=== PATIENT | female | born 1960 | race Caucasian/White ===

== ENCOUNTER → 2016-07-26 | Outpatient (CLI) | payer MEDICARE, OTHER ==
--- NOTE | 2016-07-26 19:10 | CT ---
EXAMINATION TYPE: CT abdomen pelvis w con DATE OF EXAM: 07/26/2016 5:31 PM COMPARISON: NONE HISTORY: Left upper quadrant pain x 8 months with low back pain. CT DLP: 1419.00 mGycm Automated exposure control for dose reduction was used. CONTRAST: CT scan of the abdomen pelvis is performed with IV Contrast, patient injected with 100 mL of Omnipaqu e 300. FINDINGS- LUNG BASES-subsegmental changes involving both lung bases. Atelectasis versus infiltrate. LIVER/GB- No gross abnormality is appreciated. Previous cholecystectomy clips noted. PANCREAS- No gross abnormality is seen. SPLEEN- No gross abnormality is seen. ADRENALS-there are 1 cm nodules involving both adrenal glands which are nonspecific but likely relate d to incidental adrenal adenomas. KIDNEYS/BLADDER- no hydronephrosis nephrolithiasis or renal mass. BOWEL- no bowel dilatation. Normal appendix. LYMPH NODES- No greater than 1cm abdominal or pelvic lymph nodes are appreciated. OSSEOUS STRUCTURES-chronic appearing wedge deformity within the lower thoracic spine. OTHER- there is ectasia of the distal abdominal aorta below the level of the renal arteries with a m aximal diameter of 2.6 cm. Mild atherosclerotic changes seen. Retroaortic left renal vein incidentall y noted IMPRESSION- 1. Subsegmental basilar changes. Atelectasis favored over pneumonia. Correlate clinically. 2. Aortic ectasia with no diagnostic evidence of aneurysm 3. Nonspecific 1 cm bilateral adrenal nodules most likely related to adenoma.
== END | disposition home or self-care (01) ==
LOC: RADCTMAIN 15:42
PROVIDERS: ATTEND Family Medicine
DX: I77.811 Abdominal aortic ectasia (principal); E27.8 Other specified disorders of adrenal gland; R10.12 Left upper quadrant pain
CPT/HCPCS: 74177; Q9967

== ENCOUNTER → 2017-02-15 | Outpatient (CLI) | payer MEDICARE ==
[2017-02-15 21:04] LABS: ALT 25 U/L (9-52); AST 19 U/L (14-36); Alkaline Phosphatase 87 U/L (38-126); Anion Gap 11 mmol/L; Blood Urea Nitrogen 12 mg/dL (7-17); Calcium 9.3 mg/dL (8.4-10.2); Carbon Dioxide 23 mmol/L (22-30); Chloride 108 mmol/L (98-107); Cholesterol 199 mg/dL (<200); Glucose 79 mg/dL (74-99); HDL Cholesterol 46 mg/dL (40-60); Non-African American GFR(MDRD) >60 (>60 ml/min/1.73 sqM); Potassium 4.4 mmol/L (3.5-5.1); Sodium 142 mmol/L (137-145); Total Bilirubin 0.4 mg/dL (0.2-1.3); Total Protein 6.8 g/dL (6.3-8.2); Triglycerides 119 mg/dL (<150)
== END | disposition home or self-care (01) ==
LOC: MMGSC 11:09
PROVIDERS: ATTEND Family Medicine
DX: E78.5 Hyperlipidemia, unspecified (principal); Z51.81 Encounter for therapeutic drug level monitoring
CPT/HCPCS: 36415; 80053; 80061

== ENCOUNTER → 2017-06-16 | Outpatient (CLI) | payer MEDICARE, OTHER ==
--- NOTE | 2017-06-16 12:23 | MR ---
EXAMINATION TYPE: MR lumbar spine wo con DATE OF EXAM: 06/16/2017 COMPARISON: 03/10/2014 HISTORY: 57-year-old female low back pain into legs TECHNIQUE: Multiplanar, multisequence images of the lumbar spine were acquired. FINDINGS: Slight anterior wedging of T11 vertebral body with superior endplate Schmorl's node is unchanged sugg esting remote compression injury. Mild heterogeneous marrow signal without suspicious bone marrow placement. There is a fatty matrix he mangioma within the T12 vertebral body and some scattered fatty Modic type II endplate changes anteri chiqui which is at L1-L2, L2-L3, and L3-L4. Alignment is maintained and vertebral body heights are preserved. There is variable moderate disc desiccation throughout with mild disc space narrowing and bulging dis cs. Hypertrophic facet arthropathy mid to lower lumbar spine with scattered ligamentum flavum thickening. Conus medullaris is normal. There is a component of mild congenital spinal canal stenosis in the mid to lower lumbar spine with A P canal dimension of 1.1 cm. Graft at T12-L1, no spinal canal or neuroforaminal stenosis. At L1-L2, there is diffuse disc bulge which impresses onto the ventral thecal sac. Additional mild fa cet degenerative change. Changes result in mild left and [id number]-jo-[id number] right neuroforaminal stenos is. At L2-L3, mild bulging disc with minimal bilateral inferior neural foraminal narrowing. No spinal can al stenosis. At L3-L4, is disc bulge with ligamentum flavum thickening and facet degenerative change. There is ove rall mild spinal canal stenosis similar to prior with moderate right greater than left neural foramin al stenosis which appears to be slightly increased in the interval. At L4-L5, there is diffuse disc bulge and facet arthropathy. Changes result in moderate to severe lef t greater than right neuroforaminal stenosis, increased from 2013. No significant spinal canal stenos is. At L5-S1, there is bulging disc with ligamentum flavum thickening and facet degenerative change. No s skye canal stenosis. Changes result in similar moderate left but increased moderate to severe right neuroforaminal stenosis. Similar bilateral adrenal nodularity and ectasia of the upper abdominal aorta 2.6 cm. Fusiform ectasi a infrarenal abdominal aorta increased 2.6 cm now measuring 2.9 cm. No prevertebral or paravertebral soft tissue abnormality seen. IMPRESSION: 1. Moderate multilevel degenerative disc disease. This is superimposed on a mild congenital spinal ca nal stenosis in the mid to lower lumbar spine. 2. Scattered ligamentum flavum thickening and facet arthropathy. 3. There is mild overall spinal canal stenosis at L3-L4, not significantly changed. 4. Moderate right greater than left neuroforaminal stenosis at L3-L4 slightly increased in the interv al. 5. Moderate to severe left greater than right neuroforaminal stenosis at L4-L5 is increased from 2014 . 6. Similar moderate left but with worsened moderate to severe right neural foraminal stenosis at L5-S 1. 7. Fusiform ectasia infrarenal abdominal aorta at 2.9 cm, increased from 2.6 cm in 2014. 8. Bilateral adrenal gland nodularity could reflect underlying adrenal adenoma, stable from 2014.
== END | disposition home or self-care (01) ==
LOC: RADMRIMAIN 11:14
PROVIDERS: ATTEND Family Medicine
DX: M48.07 Spinal stenosis, lumbosacral region (principal); M51.36 Other intervertebral disc degeneration, lumbar region; M46.96 Unspecified inflammatory spondylopathy, lumbar region
CPT/HCPCS: 72148

== ENCOUNTER → 2019-01-08 | Outpatient (CLI) | payer MEDICARE, OTHER ==
--- NOTE | 2019-01-08 22:44 | MR ---
EXAMINATION TYPE: MR lumbar spine wo con DATE OF EXAM: 01/08/2019 COMPARISON: MRI lumbar spine June 16, 2017. HISTORY: Radiculopathy and right foraminal stenosis per order. Low back pain into right leg and butto cks for 2 months per patient. TECHNIQUE: Multiplanar, multisequence imaging of the lumbar spine is performed without IV contrast. FINDINGS: Sagittal images of the lumbar spine show vertebral body heights and alignment to remain sat isfactory. Multilevel disc desiccation is redemonstrated. Moderate disc space narrowing at L3-L4 leve l is again seen. The conus medullaris remains stable in position and signal ending mid T12 level. Mil [id number] multilevel anterior spurring with heterogeneous endplate changes is redemonstrated. Axial images at the T12-L1 level remain within normal limits. Axial images at the L1-L2 level redemonstrate mild to moderate broad-based posterior disc protrusion effacing anterior thecal sac, bilateral neural foramina are patent. No significant change from prior. Axial images at the L2-L3 level show mild/moderate broad-based posterior disc protrusion minimally ef facing anterior thecal sac and causing mild narrowing to inferior neural foraminal narrowing. No sign ificant change from prior. Axial images at the L3-L4 level shows mild facet degenerative changes and ligamentum flavum hypertrop hy with moderate to advanced broad disc bulge effacing anterior thecal sac and causing moderate bilat eral anterior inferior neural foraminal narrowing. No significant change from prior. Axial images at the L4-L5 level mild facet degenerative changes bilaterally with mild/moderate broad disc bulge mildly effaces the anterior thecal sac and causing moderate to advanced left and moderate right-sided neural foraminal narrowing. No significant change from prior. Axial images at the L5-S1 level show moderate to advanced facet degenerative changes bilaterally with wzmc-wu-tueafuwe broad disc bulge minimally effacing the anterior thecal sac and causing moderate to severe right and moderate left-sided neural foraminal narrowing. No significant change from prior. There is partial visualization of bilateral adrenal masses axial image 29 and ectasia abdominal aorta up to 2.9 cm transversely axial image 14 without significant change from prior. Retroaortic left nirav al vein is redemonstrated which is normal variant. IMPRESSION: Multilevel degenerative changes in the lumbar spine most prominent L3-L4 through the L5-S 1 levels as detailed above. No significant change from prior MRI.
== END | disposition home or self-care (01) ==
LOC: RADMRIMAIN 16:33
PROVIDERS: ATTEND Family Medicine
DX: M47.22 Other spondylosis with radiculopathy, cervical region (principal); M47.27 Other spondylosis with radiculopathy, lumbosacral region
CPT/HCPCS: 72148

== ENCOUNTER → 2019-08-15 | Outpatient (CLI) | payer MEDICARE ==
--- NOTE | 2019-08-19 09:10 | MM ---
Reason for exam: screening (asymptomatic). Last mammogram was performed 5 years and 3 months ago. History: Patient is postmenopausal. Family history of breast cancer in maternal aunt. Physical Findings: A clinical breast exam by your physician is recommended on an annual basis and results should be correlated with mammographic findings. MG 3D Screening Mammo W/Cad Bilateral CC and MLO view(s) were taken. Prior study comparison: May 28, 2014, bilateral MG screening mammo w CAD. May 02, 2008, bilateral digital screening mammogram. There are scattered fibroglandular densities. No significant changes when compared with prior studies. ASSESSMENT: Benign, BI-RAD 2 RECOMMENDATION: Routine screening mammogram of both breasts in 1 year.
== END | disposition home or self-care (01) ==
LOC: RADMAMWWP 16:52
PROVIDERS: ATTEND Family Medicine
DX: Z12.31 Encounter for screening mammogram for malignant neoplasm of breast (principal)
CPT/HCPCS: 77063; 77067

== ENCOUNTER 2021-10-20 08:48 | Day surgery (SDC) | payer MEDICARE ==
[2021-10-19 08:31] VITALS: BMI 32.5
[~2021-10-20 08:48] MED LIST: LACTATED RINGERS 1,000 ML IV SCH
[2021-10-20 10:15] VITALS: TEMP 97
[2021-10-20] MEDS ORDERED: LIDOCAINE 1% (10MG/ML) FOR IV START INTRADERMA ONE (10:15)
[2021-10-20] MEDS ORDERED: PROPOFOL 10 MG/ML 20 ML VIAL IV ONE (10:54)
--- NOTE | 2021-10-20 11:12 | P.PCN ---
Date of Procedure: 10/20/21 Procedure(s) Performed: BRIEF HISTORY: Patient is a 61-year-old, pleasant, white female scheduled for an upper endoscopy as a part of evaluation of intermittent dysphagia to solids for the last few months duration. His occasional heartburn.. PROCEDURE PERFORMED: Esophagogastroduodenoscopy with biopsy. PREOPERATIVE DIAGNOSIS: Progressive dysphagia to solids. IV sedation per anesthesia. PROCEDURE: After informed consent was obtained, the patient was brought into the endoscopy unit. IV sedation was administered by Anesthesia under continuous monitoring. Initially the Olympus GIF-140 video endoscope was inserted into the mouth. Esophagus intubated without any difficulty. It was gradually advanced into the stomach and duodenum and carefully examined. The bulb and the second part of the duodenum appeared normal. The scope at this time was withdrawn to the stomach, adequately insufflated with air, and upon careful examination, mucosa of the antrum, had mild gastritis and biopsies were done from this area. The body, cardia and the fundus appeared normal. The scope was then withdrawn into the esophagus. Under size well hernia noted. The GE junction was located at 33 cm from the incisors. There were linear erosions or ulcerations noted in the distal esophagus extending from 28-30 cm from incisors consistent with LA grade D reflux esophagitis. Also there wasn't possible Castillo's esophagus extending from 28-30 cm from the incisors which was biopsied but there was severe inflammation this area. There was early esophageal stricture identified the GE junction. The rest of the esophagus appeared normal. the patient tolerated the procedure well. IMPRESSION: 1. Erosions or ulcerations in the distal esophagus extending from 28-33 cm from the incisors consistent with LA grade D reflux esophagitis. 2. Possible Castillo's esophagus extending from 28-30 cm from the incisors sta tus post multiple biopsies 3. Early distal esophageal stricture 4. Moderate size hiatal hernia. RECOMMENDATIONS: The findings of this examination were discussed with the patient as well as his family. She was advised to follow with the biopsy results. If the biopsy confirms the presence of Castillo's esophagus he can have a repeat surveillance upper endoscopy 3 years. In the meantime she'll be started on omeprazole 20 mg twice daily and was briefly educated about antireflux measures and she'll be seen in office in 8 weeks..
[2021-10-20 11:45] VITALS: BP 135/84; PULSE 85; RESP 20
== END 2021-10-20 12:09 | disposition home or self-care (01) ==
LOC: ORWHC2ENDO 08:48
PROVIDERS: ATTEND Internal Medicine Gastroenterology
DX: K29.50 Unspecified chronic gastritis without bleeding (principal); K22.10 Ulcer of esophagus without bleeding; K44.9 Diaphragmatic hernia without obstruction or gangrene; K22.2 Esophageal obstruction; E78.5 Hyperlipidemia, unspecified; J45.909 Unspecified asthma, uncomplicated; F32.A Depression, unspecified; K21.9 Gastro-esophageal reflux disease without esophagitis; Z90.49 Acquired absence of other specified parts of digestive tract; Z90.710 Acquired absence of both cervix and uterus; Z98.890 Other specified postprocedural states; Z88.8 Allergy status to other drugs, medicaments and biological substances; Z88.1 Allergy status to other antibiotic agents; Z85.828 Personal history of other malignant neoplasm of skin; Z79.899 Other long term (current) drug therapy
CPT/HCPCS: 88305; 88312; 43239; J2704

== ENCOUNTER → 2022-06-10 | Outpatient (CLI) | payer MEDICARE ==
--- NOTE | 2022-06-11 03:17 | MR ---
EXAMINATION TYPE: MR knee LT wo con DATE OF EXAM: 06/10/2022 COMPARISON: 12/23/2011 HISTORY: LEFT KNEE PAIN Multiplanar multi echo imaging of the left knee performed without contrast. The anterior and posterior cruciate ligaments are intact. Patellar tendon is intact. There is a mild knee joint effusion. The collateral ligaments are intact. The medial and lateral menisci appear intac t. No evidence of a tear. No evidence of a fracture. No evidence of bone edema. There is mild narrowi ng of the medial joint space. IMPRESSION: There is knee joint effusion without much change compared to the old exam. No evidence of meniscal or ligamentous tear. Mild narrowing of the medial joint space.
== END | disposition home or self-care (01) ==
LOC: RADMRIMAIN 12:50
PROVIDERS: ATTEND Orthopaedic Surgery
DX: M25.462 Effusion, left knee (principal); M25.562 Pain in left knee

== ENCOUNTER → 2022-11-10 | Outpatient (CLI) | payer MEDICARE ==
[2022-11-10 21:02] LABS: Basophils # (A) 0.04 X 10*3/uL (0.00-0.10); Basophils % (A) 0.3 %; Eosinophils # (A) 0.11 X 10*3/uL (0.04-0.35); Eosinophils % (A) 0.8 %; HGB 12.1 g/dL (12.0-15.0); Immature Grans, Automated 0.3 %; Lymphocytes # (A) 2.54 X 10*3/uL (0.90-5.00); Lymphocytes % (A) 19.4 %; MCH 26.4 pg (27.0-32.0); MCV 85.2 fL (80.0-97.0); Mean Platelet Volume 10.1 fL (9.5-12.2); Monocytes # (A) 0.83 X 10*3/uL (0.20-1.00); Monocytes % (A) 6.3 %; NRBC Per 100 WBC 0 /100 WBCS (0.0-0.0); Neutrophils # (A) 9.52 X 10*3/uL (1.80-7.70); Neutrophils % (A) 72.9 %; Platelet Count 479 X 10*3/uL (140-440); RBC 4.58 X 10*6/uL (4.10-5.20); RDW 15.4 % (11.5-14.5); WBC 13.08 X 10*3/uL (4.50-10.00)
[2022-11-10 21:35] LABS: African American GFR (CKD) 108.1 (60.0-200.0); Anion Gap 12.2 mmol/L (10.00-18.00); BUN/Creat Ratio 34.8 Ratio (12.00-20.00); Calcium 9.9 mg/dL (8.7-10.3); Carbon Dioxide 30.3 mmol/L (20.0-27.5); Non-African American GFR(CKD) 93.3 (60.0-200.0)
== END | disposition home or self-care (01) ==
LOC: LABPAT 13:55
PROVIDERS: ATTEND Orthopaedic Surgery Hand Surgery
DX: Z01.818 Encounter for other preprocedural examination (principal); G56.01 Carpal tunnel syndrome, right upper limb; R94.31 Abnormal electrocardiogram [ECG] [EKG]
CPT/HCPCS: 36415; 80048; 85025; 93005

== ENCOUNTER → 2022-12-01 | Outpatient (CLI) | payer MEDICARE ==
[2022-12-01 13:40] VITALS: BP 131/85; PULSE 100; RESP 16; TEMP 98.2
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
== END ==
LOC: PNWHC3 12:32
PROVIDERS: ATTEND Specialist
DX: M47.816 Spondylosis without myelopathy or radiculopathy, lumbar region (principal); M51.36 Other intervertebral disc degeneration, lumbar region; E78.5 Hyperlipidemia, unspecified; F17.210 Nicotine dependence, cigarettes, uncomplicated; M19.90 Unspecified osteoarthritis, unspecified site; G25.81 Restless legs syndrome; F32.9 Major depressive disorder, single episode, unspecified; Z88.6 Allergy status to analgesic agent; Z88.1 Allergy status to other antibiotic agents; Z88.8 Allergy status to other drugs, medicaments and biological substances
CPT/HCPCS: 99202

== ENCOUNTER → 2022-12-01 | Outpatient (CLI) | payer MEDICARE ==
--- NOTE | 2022-12-01 17:15 | XR ---
EXAMINATION TYPE: XR lumbar spine 2 or 3V DATE OF EXAM: 12/01/2022 Comparison: 08/18/2010 Clinical History: 62-year-old female M51.36 OTHER INTERVERTEBRAL DISC DEGENERATION, LUMB Findings: Cystectomy clips. 5 lumbar type vertebral bodies. Hypertrophic facet arthropathy mid to lower lumbar spine. Somewhat short appearance to the pedicles in the lower lumbar spine could reflect an underlyin g congenital spinal canal narrowing. Mild multilevel degenerative disc disease. More moderate at L5-S 1. There is degenerative grade 1 anterolisthesis L3-L4 and grade 1 retrolisthesis L4-L5. Superior end plate deformity T11 is unchanged from 2010. No new compression deformity. Impression: Hypertrophic facet arthropathy with degenerative trace grade 1 spondylolistheses at L3-L4 and L4-L5. [id number] multilevel degenerative disc disease. Chronic superior endplate deformity of T11.
== END | disposition home or self-care (01) ==
LOC: RADXRMAIN 13:57
PROVIDERS: ATTEND Physician Assistant Medical
DX: M51.36 Other intervertebral disc degeneration, lumbar region (principal); M47.816 Spondylosis without myelopathy or radiculopathy, lumbar region; M43.8X4 Other specified deforming dorsopathies, thoracic region
CPT/HCPCS: 72100

== ENCOUNTER 2022-12-07 10:38 | Day surgery (SDC) | payer MEDICARE, OTHER ==
[2022-12-02 15:02] VITALS: BMI 35.0
--- NOTE | 2022-12-06 09:21 | P.HPOR ---
History of Present Illness H&P Date: 12/06/22 Subjective: This is a 62 year old female that presents today for follow up evaluation regarding worsening wrist pain effecting the left wrist now present for several years. She denies any prior injury or inciting event. She underwent an intra- articular steroid injection to the left wrist for her SLAC wrist arthritis as well as a first dorsal compartment injection for DeQuervains and her DeQuervains symptoms have resolved. She has pain with all types of wrist movement at the dorsal aspect of the wrist with pain, swelling and limited ROM. She also has numbness and tingling in the thumb, index and middle fingers that is no long responding to conservative treatment after several years of anti-inflammatories and bracing. Physical Examination: RUE: AIN/PIN/Radial/Ulnar/Median motor intact. Radial/Ulnar/Median SILT. 2+/4 Radial/Ulnar pulses palpated. 5/5 APB, 5/5 FDI. Negative Finkelsteins, negative CMC grind, positive Durkan's compression. TTP over dorsal radiocarpal joint with swelling. Wrist F/E 75/45 with pain at terminal flexion/extension. Imaging: X-Rays of the right wrist 3V taken in office today demonstrate SLAC wrist arthritis, stage 2. Impression: 1.) Right SLAC wrist arthritis (Stage 2) 2.) Right carpal tunnel syndrome Plan: Diagnosis and treatment options were discussed with the patient. She has failed conservative treatment for her right SLAC wrist arthritis and carpal tunnel syndrome and would like to proceed with scaphoid excision and 4 corner fusion and right endoscopic vs open carpal tunnel release. Risks and benefits of surgery including bleeding, infection, damage to surrounding tissue, need for further surgery, residual numbness were discussed and the patient wished to go forward with surgery. The patient is agreeable with this plan. -Jay Gould DO Orthopedic Hand/Upper Extremity Surgeon Past Medical History Past Medical History: Asthma, Cancer, GERD/Reflux, Hyperlipidemia, Musculoskeletal Disorder Additional Past Medical History / Comment(s): Bulging discs, Degenerative Disc Disease, osteoporosis, chronic back pain. Dysphagia w/meat & bread. Hx skin cancer. Restless Leg Syndrome. Varicose veins left leg. Insomnia. History of Any Multi-Drug Resistant Organisms: None Reported Past Surgical History: Cholecystectomy, Hysterectomy, Orthopedic Surgery Additional Past Surgical History / Comment(s): Bilateral arms-tendon surgery, right arm ulnar nerve surgery. Past Anesthesia/Blood Transfusion Reactions: No Reported Reaction, Motion Sickness Past Psychological History: Depression Smoking Status: Former smoker Past Alcohol Use History: None Reported Additional Past Alcohol Use History / Comment(s): Quit smoking 3 yrs ago, smoked for 40 yrs, 1ppd. Past Drug Use History: None Reported - Past Family History Mother Family Medical History: No Reported History Medications and Allergies Home Medications Medication Instructions Recorded Confirmed Type Cholecalciferol [Vitamin D3] 2,000 unit PO DAILY 10/16/14 12/02/22 History HYDROcodone/APAP 7.5-325MG [[place] 1 each PO Q6HR PRN 10/16/14 12/02/22 History 7.5-325] Tolterodine Tartrate [Detrol LA] 2 mg PO BID 10/16/14 12/02/22 History Multivitamins, Thera [Multivitamin 1 tab PO DAILY 10/19/21 12/02/22 History (formulary)] rOPINIRole HCL [Requip] 0.25 mg PO HS 10/19/21 12/02/22 History Ezetimibe/Rosuvastatin Calcium 1 each PO DAILY 12/01/22 12/02/22 History [Ezetimibe/Rosuvastatin Calcium 10-10Mg] DULoxetine HCL 40 mg PO QAM 12/02/22 12/02/22 History Omeprazole 20 mg PO BID 12/02/22 12/02/22 History hydroCHLOROthiazide 12.5 mg PO DAILY 12/02/22 12/02/22 History [Hydrochlorothiazide] Allergies Allergy/AdvReac Type Severity Reaction Status Date / Time pramipexole Allergy Hallucinati Verified 12/02/22 14:45 ons celecoxib [From Celebrex] AdvReac Nausea & Verified 12/02/22 14:45 Vomiting doxycycline AdvReac Nausea & Verified 12/02/22 14:45 Vomiting duloxetine HCl AdvReac Nausea & Verified 12/02/22 14:45 [From Cymbalta] Vomiting Physical Examination Osteopathic Statement: *. No significant issues noted on an osteopathic structural exam other than those noted in the History and Physical/Consult.
[~2022-12-07 10:38] MED LIST changes: +DEXAMETHASONE SOD PHOSPHATE 4 MG/ML 1 ML VIAL IV ONE; +HYDROmorphone 0.5 MG/0.5 ML SYRINGE IVP PRN; +LIDOCAINE 1% (10MG/ML) FOR IV START INTRADERMA PRN; +ONDANSETRON 4 MG/2 ML VIAL IVP ONE; +droPERidol 5 MG/2 ML VIAL IVP ONE
[2022-12-07] MEDS ORDERED: MIDAZOLAM 2 MG/2 ML VIAL IVP ONE (11:24)
[2022-12-07] MEDS ORDERED: SUCCINYLCHOLINE CHLORIDE 200 MG/10 ML VIAL IV ONE (14:44)
[2022-12-07] MEDS ORDERED: LIDOCAINE 2% INJ 20 MG/ML (2 ML VIAL) ONE (14:44)
[2022-12-07] MEDS ORDERED: PHENYLEPHRINE-0.9% NACL SYG 1,000 MCG/10 ML SYRINGE ONE (14:44)
[2022-12-07] MEDS ORDERED: fentaNYL (PF) 50 MCG/ML 2 ML AMP ONE (14:44)
[2022-12-07] MEDS ORDERED: PROPOFOL 10 MG/ML 20 ML VIAL IV ONE (14:44)
[2022-12-07] MEDS ORDERED: LACTATED RINGERS 1,000 ML IV ONE (16:17)
[2022-12-07 17:10] VITALS: RESP 16; TEMP 96.9
[2022-12-07 17:53] VITALS: BP 108/66; PULSE 90
--- NOTE | 2022-12-07 19:17 | P.OP ---
Date of Procedure: 12/07/22 Preoperative Diagnosis: 1.) Right wrist SLAC arthritis 2.) Right carpal tunnel syndrome Postoperative Diagnosis: 1.) Right wrist SLAC arthritis 2.) Right carpal tunnel syndrome Procedure(s) Performed: 1.) Right wrist Scaphoid excision and four corner fusion 2.) Right endoscopic carpal tunnel release Implants: 1.) 0.062 Kwire x 1 2.) 0.045 Kwire x 3 Anesthesia: NATHENA, regional Surgeon: Jay Gould Kindergarten Classroom Teacher #1: Srini French Estimated Blood Loss (ml): 30 Pathology: none sent Condition: stable Disposition: PACU Description of Procedure: This is a 62 year old female who presents today for a right scaphoid excision and four corner limited wrist arthrodesis and an endoscopic carpal tunnel release after having failed conservative treatment for end stage wrist arthritis and carpal tunnel syndrome. Risks and benefits of surgery were discussed with the patient including bleeding, damage to surrounding tissue, infection, need for further surgery as well as risks of anesthesia including pulmonary embolism and even and the patient wished to proceed with surgical intervention. The patient was seen in the pre-operative area by myself. Consent and H&P were completed and updated. The correct extremity was marked in the pre-operative area by myself and all other questions were answered. Operative Narrative: The patient was brought to the operating room by the department of anesthesia. They remained on the portable stretcher and a rolling hand table was brought to the side of the operative extremity. Pre-operative time out was performed indicating the correct patient, procedure and laterality. All in the room agreed. Pre-operative antibiotics were given prior to skin incision. The patient was then drifted off to sleep by the department of anesthesia. A nonsterile tourniquet was then applied to the operative extremity and the right upper extremity was then prepped and draped in normal sterile fashion. The operative extremity was the exsanguinated with an esmarch bandage and the tourniquet was inflated to 250mmHg. 15 blade scalpel was utilized to make a transverse incision on the palmar skin just ulnar to the palmaris longus tendon at the level of the distal wrist crease. Ragnell retractor was then placed radially and blunt dissection was performed to reveal the distal forearm fascia. This was lifted with fine Shakir pick ups and Littler tenotomy scissors were then used to open the forearm fascia transversely and a double skin hook was then placed. Hamate finder was placed into the carpal tunnel and then sequential sized dilators were inserted followed by the synovial elevator to separate the flexor tenosynovium from the undersurface of the transverse carpal ligament and a washboard texture was felt. The [employer] endoscopic carpal tunnel release system gun was the then inserted into the carpal tunnel hugging the deep portion of the transverse carpal ligament in line with the base of the ring finger. Transverse fibers of the ligament were directly visualized. Pressure was applied on the palm to reveal the distal extent of the transverse carpal ligament. The blade was then deployed and the distal half of the transverse carpal ligament was released. The scope was then brought distal again and remaining transverse fibers were incised with the blade. The proximal half of the transverse carpal ligament was then divided and again the scope was advanced distal and remaining transverse fibers were incised with the blade. The radial and ulnar leaflets were directly visualized and mobile consistent with complete release. Tenotomy scissors were then utili zed to release the remaining distal forearm fascia under direct visualization taking care to preserve the palmar cutaneous branch of the median nerve. A longitudinal incision was made just ulnar to Listers tubercle with 15 blade scalpel. Blunt dissection was taken down through subcutaneous tissues with Littler tenotomy scissors. Dorsal sensory branches of the ulnar nerve and superficial radial sensory nerve were identified and protected. Distal edge of the extensor retinaculum was identified and the distal 1/4 of the extensor retinaculum was incised. EPL tendon was identified at listers tubercle and the third dorsal compartment was released. The 4th dorsal compartment tendons were then swept ulnarly and a T-shaped capsular incision was made over the dorsal rad iocarpal capsule. Sharp dissection was performed to elevate the capsule off of the dorsal carpal bones, abundant synovial tissue was present deep to the capsule. Synovectomy was performed. There appeared to be end stage radioscaphoid arthritic changes as well as early changes at the capitolunate articulation with preserved radiolunate articular surfaces therefore decision was made to go forward with scaphoid excision and 4 corner fusion. K wire was inserted into the scaphoid and identification of the scaphoid bone was confirmed on fluoroscopy. A rongeur and McGlammory elevator were then used to excise the scaphoid bone in its entirety in a piecemeal fashion taking care to protect the volar radioscaphocapitate ligament which was identified. Roughly 3mm of radial styloid was then taken down with rongeur taking care to protect the attachment of the RSC ligament. A combination of rongeur and curette was then utilized to remove all cartilaginous surfaces at the capitolunate, capitohamate, and lunotriquetral surfaces down to cancellous bone. The wound was then copiously irrigated to remove all thomas debris. Attention was brought to listers tubercle which was removed with rongeur and dorsal distal radius bone graft was excised from the distal radius with curette and collected. Reduction maneuver was then performed to correct DISI deformity of lunate and a 0.062 K-wire was inserted across the capitolunate joint, followed by an additional 0.045 k-wire. Flouroscopy was used to confirm correct placement and no penetration of the radiolunate joint was appreciated. 0.045 k-wires where then inserted from the hamate to capitate and then the triquetrum to lunate under direct visualized and confirmed on fluoroscopic imaging. Previously harvested distal radius autograft was then placed into the arthrodesis site and axial compression was used to compress the arthrodesis site. Final placement of pins was confirmed on X-ray with correction of DISI deformity. Capsular closure was then performed with 3-0 Monocryl suture followed by subcutaneous closure with 4-0 moncryl suture followed by 4-0 nylon suture. Pin edges were then cut subcutaneously. A volar plaster splint was applied with 4x4s, cast padding and an minnie wrap. Tourniquet was let down and the hand had immediate perfusion. The patient was then woken by the department of anesthesia and transferred to PACU in stable condition. Srini MUKHERJEE was present for the entire case to assist in reduction, hardware placement and protection of vital neurovascular structures. Jay Gould D.O. Orthopedic Hand/Upper Extremity Surgeon
== END 2022-12-07 18:03 | disposition home or self-care (01) ==
LOC: OR 10:38
PROVIDERS: ATTEND Orthopaedic Surgery Hand Surgery
DX: M19.031 Primary osteoarthritis, right wrist (principal); G56.01 Carpal tunnel syndrome, right upper limb; G89.18 Other acute postprocedural pain; J45.909 Unspecified asthma, uncomplicated; K21.9 Gastro-esophageal reflux disease without esophagitis; E78.5 Hyperlipidemia, unspecified; M81.0 Age-related osteoporosis without current pathological fracture; F32.A Depression, unspecified; Z85.828 Personal history of other malignant neoplasm of skin; Z90.49 Acquired absence of other specified parts of digestive tract; Z90.710 Acquired absence of both cervix and uterus; Z87.891 Personal history of nicotine dependence; Z88.6 Allergy status to analgesic agent; Z88.1 Allergy status to other antibiotic agents; Z88.8 Allergy status to other drugs, medicaments and biological substances; Z79.899 Other long term (current) drug therapy
CPT/HCPCS: 64415

== ENCOUNTER → 2023-01-19 | Outpatient (CLI) | payer MEDICARE ==
[2023-01-19 14:58] VITALS: BP 107/70; PULSE 106; RESP 16; TEMP 98.3
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
== END ==
LOC: PNWHC3 13:50
PROVIDERS: ATTEND Specialist
DX: M51.36 Other intervertebral disc degeneration, lumbar region (principal); M47.816 Spondylosis without myelopathy or radiculopathy, lumbar region; F17.200 Nicotine dependence, unspecified, uncomplicated; G89.29 Other chronic pain; Z88.1 Allergy status to other antibiotic agents; Z88.5 Allergy status to narcotic agent; Z88.8 Allergy status to other drugs, medicaments and biological substances
CPT/HCPCS: 99211

== ENCOUNTER 2023-02-01 12:50 | Day surgery (SDC) | payer MEDICARE, OTHER ==
--- NOTE | 2023-01-31 17:37 | P.HPOR ---
History of Present Illness H&P Date: 01/31/23 Subjective: This is a 62 year old female that presents today for a post-operative visit after undergoing scaphoid excision 4 corner fusion and endoscopic carpal tunnel release on 12/07/22. She is now 7 weeks out form surgery and her pain has been controlled. She denies any new injury and has been icing/elevating and working on finger range of motion. Physical Examination: RUE: AIN/PIN/Radial/Ulnar/Median motor intact. Radial/Ulnar/Median SILT. 2+/4 Radial/Ulnar pulses palpated. Dorsal and volar incisions well healed. Able to make a near full fist. Pin hole on ulnar aspect of hand healed. Impression: 1.) S/P Right scaphoid excision 4 corner fusion and endoscopic carpal tunnel release. Plan: Diagnosis and treatment options were discussed with the patient. She is taken out of her her short arm cast and is placed in a short arm splint. We will continue to plan to take the K wires out under light sedation in the operating room around the postop week 8. Risks and benefits of surgery including bleeding, infection, damage to surrounding tissue, need for further surgery, residual numbness were discussed and the patient wished to go forward with surgery. We will start therapy immediately after K-wire removal in 1 week. Referral to [place] hand therapy is given. The patient is agreeable with this plan. CC: Rama Puente MD -Jay Gould DO Orthopedic Hand/Upper Extremity Surgeon Past Medical History Past Medical History: Asthma, Cancer, GERD/Reflux, Hyperlipidemia, Musculoskeletal Disorder, Osteoarthritis (OA), Skin Disorder Additional Past Medical History / Comment(s): Bulging discs, Degenerative Disc Disease, osteoporosis, chronic back pain. Dysphagia w/meat & bread. Hx skin cancer. Restless Leg Syndrome. Varicose veins left leg. Insomnia. states infection @surg. site from prior surg., waiting for surgeon to call in A/B History of Any Multi-Drug Resistant Organisms: None Reported Past Surgical History: Cholecystectomy, Hysterectomy, Orthopedic Surgery Additional Past Surgical History / Comment(s): Bilateral arms-tendon surgery, right arm ulnar nerve surgery. right endoscopic CTS, right scaphoid excision & fusion 12-07-22 Past Anesthesia/Blood Transfusion Reactions: No Reported Reaction, Motion Sickness Smoking Status: Former smoker Medications and Allergies Home Medications Medication Instructions Recorded Confirmed Type Cholecalciferol [Vitamin D3] 2,000 unit PO DAILY 10/16/14 01/30/23 History HYDROcodone/APAP 7.5-325MG [Winifred 1 each PO Q6HR PRN 10/16/14 01/30/23 History 7.5-325] Tolterodine Tartrate [Detrol LA] 2 mg PO BID 10/16/14 01/30/23 History Multivitamins, Thera [Multivitamin 1 tab PO DAILY 10/19/21 01/30/23 History (formulary)] rOPINIRole HCL [Requip] 0.25 mg PO HS 10/19/21 01/30/23 History Ezetimibe/Rosuvastatin Calcium 1 each PO HS 12/01/22 01/30/23 History [Ezetimibe/Rosuvastatin Calcium 10-10Mg] Omeprazole 40 mg PO BID 12/02/22 01/30/23 History hydroCHLOROthiazide 12.5 mg PO DAILY 12/02/22 01/30/23 History [Hydrochlorothiazide] Ascorbic Acid [Vitamin C] 500 mg PO DAILY 12/07/22 01/30/23 History Cyanocobalamin (Vitamin B-12) 1,000 mcg PO DAILY 12/07/22 01/30/23 History [Vitamin B-12] FLUoxetine HCL [PROzac] 40 mg PO BID 12/07/22 01/30/23 History Allergies Allergy/AdvReac Type Severity Reaction Status Date / Time pramipexole Allergy Hallucinati Verified 01/30/23 15:44 ons celecoxib [From Celebrex] AdvReac Nausea & Verified 01/30/23 15:44 Vomiting doxycycline AdvReac Nausea & Verified 01/30/23 15:44 Vomiting duloxetine HCl AdvReac Nausea & Verified 01/30/23 15:44 [From Cymbalta] Vomiting Physical Examination Osteopathic Statement: *. No significant issues noted on an osteopathic structural exam other than those noted in the History and Physical/Consult.
[~2023-02-01 12:50] MED LIST changes: +MIDAZOLAM 2 MG/2 ML VIAL IV PRN; -droPERidol 5 MG/2 ML VIAL IVP ONE
[2023-02-01 13:19] VITALS: TEMP 96.9
[2023-02-01] MEDS ORDERED: MIDAZOLAM 2 MG/2 ML VIAL ONE (13:33)
[2023-02-01] MEDS ORDERED: PROPOFOL 10 MG/ML 20 ML VIAL IV ONE (13:33)
[2023-02-01] MEDS ORDERED: fentaNYL (PF) 50 MCG/ML 2 ML AMP ONE (13:33)
[2023-02-01] MEDS ORDERED: BUPIVACAINE (PF) 0.5% 30 ML VIAL SQ ONE (13:43)
[2023-02-01] MEDS ORDERED: LIDOCAINE 2% INJ 20 MG/ML SQ ONE (13:43)
[2023-02-01 14:34] VITALS: RESP 16
[2023-02-01 15:19] VITALS: BP 104/69; PULSE 75
--- NOTE | 2023-02-01 15:24 | P.OP ---
Date of Procedure: 02/01/23 Preoperative Diagnosis: 1.) SLAC wrist arthritis s/p four corner fusion with temporary K-wire placement. Postoperative Diagnosis: 1.) SLAC wrist arthritis s/p four corner fusion with temporary K-wire placement. Procedure(s) Performed: Right wrist removal of deep orthopedic implant x3. Anesthesia: MAC Surgeon: Jay Gould Putty Patcher #1: Srini French Estimated Blood Loss (ml): 0 Pathology: none sent Condition: stable Disposition: PACU Description of Procedure: This is a 62 year old female with SLAC wrist arthritis who underwent right wrist four corner fusion with temporary K-wire placement roughly 1.5 months prior. She presents today for removal of 3 k-wires. Risks and benefits of surgery were discussed with the patient including bleeding, damage to surrounding tissue, infection, need for further surgery as well as risks of anesthesia including pulmonary embolism and even and the patient wished to proceed with surgical intervention. The patient was seen in the pre-operative area by myself. Consent and H&P were completed and updated. The correct extremity was marked in the pre-operative area by myself and all other questions were answered. Operative Narrative: The patient was brought to the operating room by the department of anesthesia. They remained on the portable stretcher and a rolling hand table was brought to the side of the operative extremity. Pre-operative time out was performed indicating the correct patient, procedure and laterality. All in the room agreed. Pre-operative antibiotics were given prior to skin incision. The patient was then drifted off to sleep by the department of anesthesia. Digital block was performed with 7cc's of 0.5% Lidocaine and 1% lidocaine in a 50:50 mixture. A nonsterile tourniquet was then applied to the operative extremity and the right upper extremity was then prepped and draped in normal sterile fashion. The operative extremity was the exsanguinated with an esmarch bandage and the tourniquet was inflated to 250mmHg. Longitudinal incision was made over the k-wire dorsally at the level of the wrist. Hemostat was then used to successfully remove the two dorsal k-wires without complication. A second incision was made along the ulnar boarder of the hand and hemostat was then used to successfully removed the ulnar k-wire. The sites were then irrigated with sterile saline. Live flouroscopy was used to confirm solid fusion at the 4 corner fusion site with the fusion moving as a single solid unit. The wounds were then closed with several steri strips. Tourniquet was let down and the hand had immediate perfusion. Srini MUKHERJEE was present to assist in the case. The patient was then woken by the department of anesthesia and transferred to PACU in stable condition. Jay Gould D.O. Orthopedic Hand/Upper Extremity Surgeon
== END 2023-02-01 15:17 | disposition home or self-care (01) ==
LOC: OR 12:50
PROVIDERS: ATTEND Orthopaedic Surgery Hand Surgery
DX: Z98.1 Arthrodesis status (principal); J44.9 Chronic obstructive pulmonary disease, unspecified; E78.5 Hyperlipidemia, unspecified; M19.90 Unspecified osteoarthritis, unspecified site; M81.0 Age-related osteoporosis without current pathological fracture; Z85.828 Personal history of other malignant neoplasm of skin; G25.81 Restless legs syndrome; Z90.89 Acquired absence of other organs; Z90.710 Acquired absence of both cervix and uterus; Z79.899 Other long term (current) drug therapy
CPT/HCPCS: 20680; J2001; J2250; J1100; J0690; J2405; J3010; J2704

== ENCOUNTER → 2023-02-06 | Outpatient (CLI) | payer MEDICARE ==
--- NOTE | 2023-02-06 14:42 | CT ---
EXAMINATION TYPE: CT lumbar spine wo con DATE OF EXAM: 02/06/2023 2:06 PM COMPARISON: None HISTORY: low back pain CT DLP: 848 mGycm Automated exposure control for dose reduction was used. Unenhanced CT of the lumbar spine was performed. Bone and soft tissue window settings are submitted as well as coronal and sagittal reconstructions. L1-L2: Mild degenerative disc space narrowing. Circumferential disc bulge and radius posteriorly with mild effacement ventral thecal sac. There is no evidence for disc herniation or protrusion. No centr al stenosis. Right foraminal encroachment noted. L2-L3: Mild degenerative disc space narrowing. Circumferential disc bulge and radius posteriorly with mild effacement ventral thecal sac. There is no evidence for disc herniation or protrusion. No centr al stenosis. Right foraminal encroachment noted. L3-L4: Severe degenerative disc space narrowing and vacuum disks. Moderate circumferential broad-base d disc bulge noted. Effacement ventral thecal sac with bilateral lateral recess stenosis and borderli ne to mild central stenosis. Facet joint arthropathy with mild bilateral foraminal encroachment. L4-L5: Severe degenerative disc space narrowing and vacuum disks. Moderate circumferential broad-base d disc bulge noted. Effacement ventral thecal sac with bilateral lateral recess stenosis and borderli ne to mild central stenosis. Facet joint arthropathy with mild bilateral foraminal encroachment. L5-S1: Severe degenerative disc space narrowing. Broad-based subligamentous disc herniation posterior ly centrally and to the right. There is right lateral recess stenosis and right foraminal encroachmen t. No paraspinal masses are identified. Lumbar segments are intact. IMPRESSION: 1. Multilevel degenerative disc space narrowing and degenerative disc disease. 2. Disc herniation at L5-S1 with right lateral recess stenosis and right foraminal encroachment. 3. Bilateral lateral recess stenosis and borderline to mild central stenosis at L3-4 and L4-5. See ab ove.
== END | disposition home or self-care (01) ==
LOC: RADCTMAIN 13:47
PROVIDERS: ATTEND Specialist
DX: M51.36 Other intervertebral disc degeneration, lumbar region (principal); M51.27 Other intervertebral disc displacement, lumbosacral region; M99.73 Connective tissue and disc stenosis of intervertebral foramina of lumbar region
CPT/HCPCS: 72131

== ENCOUNTER → 2023-02-16 | Outpatient (CLI) | payer MEDICARE ==
[2023-02-16 13:24] VITALS: BP 120/83; PULSE 92; RESP 16; TEMP 98.5
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
== END ==
LOC: PNWHC3 12:49
PROVIDERS: ATTEND Specialist
DX: M51.36 Other intervertebral disc degeneration, lumbar region (principal); M47.816 Spondylosis without myelopathy or radiculopathy, lumbar region; M48.061 Spinal stenosis, lumbar region without neurogenic claudication; F17.200 Nicotine dependence, unspecified, uncomplicated; Z88.8 Allergy status to other drugs, medicaments and biological substances; Z88.1 Allergy status to other antibiotic agents
CPT/HCPCS: 99211

== ENCOUNTER 2023-03-02 12:15 | Day surgery (SDC) | payer MEDICARE, OTHER ==
[2023-02-23 15:57] VITALS: BMI 32.2
[~2023-03-02 12:15] MED LIST changes: -DEXAMETHASONE SOD PHOSPHATE 4 MG/ML 1 ML VIAL IV ONE; -HYDROmorphone 0.5 MG/0.5 ML SYRINGE IVP PRN; -LIDOCAINE 1% (10MG/ML) FOR IV START INTRADERMA PRN; -MIDAZOLAM 2 MG/2 ML VIAL IV PRN; -ONDANSETRON 4 MG/2 ML VIAL IVP ONE
[2023-03-02 12:41] VITALS: TEMP 97.8
[2023-03-02] MEDS ORDERED: methylPREDNISolone ACETATE 80 MG/ML 1 ML VIAL ONE (12:58)
[2023-03-02] MEDS ORDERED: IOPAMIDOL M200 10 ML VIAL ONE (12:58)
--- NOTE | 2023-03-02 13:04 | P.PCN ---
Date of Procedure: 03/02/23 Procedure(s) Performed: PREOPERATIVE DIAGNOSIS: 1- Lumbar Degenerative Disc Diseases 2-Lumbar spondylosis with Facet arthropathy without myelopathy. 3-lumbar spinal stenosis POSTOPERATIVE DIAGNOSIS: 1-lumbar degenerative disc disease. 2-lumbar spondylosis with facet arthropathy without myelopathy. 3-lumbar spinal stenosis. PROCEDURE 1. Lumbar epidural steroid injection under fluoroscopic guidance at the L5-S1 level. (Fluoroscopy imaging was available in radiology department) 2. Lumbar epidurogram. ANESTHESIA: Lidocaine 1% 3 and then only. EBL: Minimal PROCEDURE INDICATION: The patient with low back pain and radiculitis symptoms unresponsive to conservative treatment. Fluoroscopy was used to optimize visualization of the needle placement and to maximize safety. PROCEDURE DESCRIPTION / TECHNIQUE: The patient was seen and identified in the preoperative area. Risks, benefits, complications including but not limited to infections ,bleeding ,allergic reaction to the medications ,nerve damage and not complete pain releife , and alternatives were discussed with the patient. The patient agreed to proceed with the procedure and signed the consent, and vital signs were stable. Patient was taken to the OR and time out was completed. The patient was placed in the prone position on procedure table and a pillow was placed under the abdomen to reduce lumbar lordosis. The lumbosacral area was prepped and draped in the usual sterile fashion.ere closely monitored during the procedure. Vital signs was monitered during the entire procedure. Using anterior-posterior fluoroscopy, the L5-S1 interlaminar space was identified and the skin over this site was marked and then infiltrated with 1% lidocaine subcutaneously. Subsequently, a 20-gauge Tuohy epidural needle was inserted and advanced toward the epidural space using the ``Loss of resistance technique and guided by AP and lateral fluoroscopy. The correct needle position in the epidural space was verified with the injection of 2 mL of the water soluble contrast dye Isovue 200 contrast and observing an excellent epidurogram with the epidural spread of the dye, after negative aspiration for blood and CSF and in the absence of paresthesias. Again after negative aspiration, a 6 ml mixture containing 80 mg of Depo-medrol ( Preservetive Free ), and 2 ml of preservative free Normal Saline, and 2 ml of preservative free lidocaine 1% solution was injected and a washout of epidurogram was seen. Needle was withdrawn intact, skin was cleansed, and bandages were applied. COMPLICATIONS: None DISPOSITION / PLANS: The patient was placed in a supine position and transferred to the recovery area in a stable condition for observation. There was no evidence of lower extremity motor or sensory deficit after the procedure. Patient was discharged from the recovery room after meeting discharge criteria. Home discharge instructions were given to the patient by the staff. The patient was reexamined prior to discharge. The patient will schedule a follow up in the clinic in 2-4 weeks.
[2023-03-02 13:10] VITALS: BP 103/68; PULSE 85; RESP 16
--- NOTE | 2023-03-02 13:13 | FL ---
Intraoperative/procedural fluoroscopic services were provided for lumbar epidural steroid injection. Total fluoroscopy time is 16.0 seconds with a total of 1 submitted image to PACS. Total DAP [id number] m Gym2. Please see the operative note for further details.
== END 2023-03-02 13:20 | disposition home or self-care (01) ==
LOC: ORPAIN 12:15
PROVIDERS: ATTEND Specialist
DX: M51.16 Intervertebral disc disorders with radiculopathy, lumbar region (principal); M47.26 Other spondylosis with radiculopathy, lumbar region; M48.061 Spinal stenosis, lumbar region without neurogenic claudication
CPT/HCPCS: 62323; J1040; Q9966

== ENCOUNTER → 2023-04-05 | Outpatient (CLI) | payer MEDICARE, OTHER ==
[2023-04-05 12:57] VITALS: BP 109/71; PULSE 94; RESP 116; TEMP 98.5
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
== END ==
LOC: PNWHC3 11:03
PROVIDERS: ATTEND Specialist
DX: M51.36 Other intervertebral disc degeneration, lumbar region (principal); M47.816 Spondylosis without myelopathy or radiculopathy, lumbar region; M48.061 Spinal stenosis, lumbar region without neurogenic claudication; F17.200 Nicotine dependence, unspecified, uncomplicated; Z88.8 Allergy status to other drugs, medicaments and biological substances; Z88.1 Allergy status to other antibiotic agents
CPT/HCPCS: 99211

== ENCOUNTER 2023-04-25 11:47 | Day surgery (SDC) | payer MEDICARE, OTHER ==
[2023-04-25 12:10] VITALS: TEMP 97.2
[2023-04-25] MEDS ORDERED: IOPAMIDOL M200 10 ML VIAL ONE (12:51)
[2023-04-25] MEDS ORDERED: methylPREDNISolone ACETATE 80 MG/ML 1 ML VIAL ONE (12:51)
--- NOTE | 2023-04-25 12:58 | P.PCN ---
Date of Procedure: 04/25/23 Description of Procedure: Procedure: 1. L5-S1 Epidural steroid injection under fluoroscopic guidance , 2. Lumbar epidurogram PREOPERATIVE DIAGNOSIS: Lumbar degenerative disc disease, and Lumbar radiculopathy. POSTOPERATIVE DIAGNOSIS: Lumbar degenerative disc disease, and Lumbar r adiculopathy. SURGEON: Barbara Caldwell ANESTHESIA: Local with 1% lidocaine, and IV sedation: None EBL: None. Specimen removed: None Fluoroscopic image: saved to electronic medical records PROCEDURE INDICATION: The patient had history of Lumbar degenerative disc disease and Lumbar radiculopathy. Failed to conservative therapy. Presented for epidural steroid injection. PROCEDURE DESCRIPTION: The patient was seen and identified in the preoperative area. Risks, benefits, complications, and alternatives were discussed with the patient. The patient agreed to proceed with the procedure and signed the consent. IV was started, and vital signs were stable. Patient was taken to the procedure area, and time out was completed. The patient was placed in the prone position on procedure table and a pillow was placed under the abdomen to reduce lumbar lordosis. The lumbosacral area was prepped and draped in the usual sterile fashion. Critical pause was taken. Vital signs were closely monitored during the procedure. Using anterior-posterior fluoroscopy, the L5-S1 interlaminar space was identified, and skin and deeper tissues were localized with 1% lidocaine. Using anterior-posterior fluoroscopy, lateral fluoroscopy, and [id number] technique, a 20 gauge 3.5 Tuohy epidural needle entered the epidural space. After negative aspiration of CSF and blood with no paresthesias, 2 ml of [id number] contrast dye was injected and an excellent epidurogram was seen. Again after negative aspiration of CSF and blood with no paresthesias, 8 mL of block solution was injected into the epidural space. Block solution contained 80 mg of Depo-Medrol, and 6 mL of preservative-free normal saline. Needle was withdrawn intact, skin was cleansed, and bandages were applied. COMPLICATIONS: None. DISPOSITION / PLANS: The patient was placed in a supine position and transferred to the recovery area in a stable condition for observation. Patient was discharged from the recovery room after meeting discharge criteria. Home discharge instructions given to the patient by the staff. The patient was reexamined prior to discharge. The patient will schedule a follow up in the clinic in 4 weeks.
[2023-04-25 13:37] VITALS: BP 104/69; PULSE 79; RESP 18
--- NOTE | 2023-04-25 15:39 | FL ---
Intraoperative/procedural fluoroscopic services were provided. Total fluoroscopy time is 15 seconds w ith a total of 1 submitted images to PACS. Please see the operative/procedural note for further detai ls. DAP: [id number] mGym2
== END 2023-04-25 13:31 | disposition home or self-care (01) ==
LOC: ORPAIN 11:47
DX: M51.16 Intervertebral disc disorders with radiculopathy, lumbar region (principal); K21.9 Gastro-esophageal reflux disease without esophagitis; G25.81 Restless legs syndrome; F32.A Depression, unspecified; M19.90 Unspecified osteoarthritis, unspecified site; Z88.8 Allergy status to other drugs, medicaments and biological substances; Z88.6 Allergy status to analgesic agent; Z88.1 Allergy status to other antibiotic agents; Z98.890 Other specified postprocedural states; Z79.899 Other long term (current) drug therapy; Z90.710 Acquired absence of both cervix and uterus; Z90.49 Acquired absence of other specified parts of digestive tract
CPT/HCPCS: 62323; J1040; Q9966

== ENCOUNTER 2023-05-10 10:07 | Day surgery (SDC) | payer MEDICARE, OTHER ==
[2023-05-08 12:17] VITALS: BMI 32.2
[2023-05-10 11:05] VITALS: TEMP 96.9
[2023-05-10 11:16] LABS: Glucose,Whole Blood 102 mg/dL (70-110)
[2023-05-10] MEDS ORDERED: LIDOCAINE 1% INJ 10MG/ML (20 ML MDV) ONE (11:39)
[2023-05-10] MEDS ORDERED: PROPOFOL 10 MG/ML 20 ML VIAL IV ONE (11:39)
--- NOTE | 2023-05-10 11:46 | P.PCN ---
Date of Procedure: 05/10/23 Procedure(s) Performed: BRIEF HISTORY: Patient is a 63-year-old, pleasant, white female scheduled for an upper endoscopy as a part of form evaluation of long-standing history of GERD. She had an upper endoscopy done a year ago and was noted to have severe LA grade B reflux esophagitis. She is maintained on omeprazole 20 mg twice daily and she is scheduled for an upper endoscopy to rule out complicated reflux disease. PROCEDURE PERFORMED: Esophagogastroduodenoscopy with biopsy PREOPERATIVE DIAGNOSIS: Long-standing history of GERD. IV sedation per anesthesia. PROCEDURE: After informed consent was obtained, the patient was brought into the endoscopy unit. IV sedation was administered by Anesthesia under continuous monitoring. Initially the Olympus GIF-140 video endoscope was inserted into the mouth. Esophagus intubated without any difficulty. It was gradually advanced into the stomach and duodenum and carefully examined. The bulb and the second part of the duodenum appeared normal. The scope at this time was withdrawn to the stomach, adequately insufflated with air, and upon careful examination, mucosa of the antrum, body, cardia and the fundus appeared normal. The scope was then withdrawn into the esophagus. The GE junction was located at 39 cm from the incisors. The esophagus appeared normal. There were no erosions or ulcerations seen and the patient tolerated the procedure well. IMPRESSION: 1. 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 2. Small hiatal hernia. RECOMMENDATIONS: The findings of this examination were discussed with the patient as well as a family. She was advised to follow with the biopsy sites. If the biopsy confirms the presence of Castillo's esophagus and have a repeat upper endoscopy in 3 years. In the meantime she will continue with omeprazole 20 mg twice daily and follow antireflux measures.
[2023-05-10] MEDS ORDERED: IV FLUID CONTINUATION 800 ML IV ONE (11:50)
[2023-05-10 12:04] VITALS: RESP 16
[2023-05-10 12:24] VITALS: BP 111/72; PULSE 71
== END 2023-05-10 12:31 | disposition home or self-care (01) ==
LOC: ORWHC2ENDO 10:07
PROVIDERS: ATTEND Internal Medicine Gastroenterology
DX: K22.70 Barrett's esophagus without dysplasia (principal); K44.9 Diaphragmatic hernia without obstruction or gangrene; K21.00 Gastro-esophageal reflux disease with esophagitis, without bleeding; C44.90 Unspecified malignant neoplasm of skin, unspecified; E78.5 Hyperlipidemia, unspecified; G25.81 Restless legs syndrome; J45.909 Unspecified asthma, uncomplicated; M81.0 Age-related osteoporosis without current pathological fracture; M19.90 Unspecified osteoarthritis, unspecified site; Z88.1 Allergy status to other antibiotic agents; Z88.6 Allergy status to analgesic agent; Z88.8 Allergy status to other drugs, medicaments and biological substances; Z79.1 Long term (current) use of non-steroidal anti-inflammatories (NSAID); Z85.828 Personal history of other malignant neoplasm of skin; Z79.899 Other long term (current) drug therapy
CPT/HCPCS: 88305; 43239; J2001; J2704

== ENCOUNTER → 2023-05-18 | Outpatient (CLI) | payer MEDICARE, OTHER ==
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
[2023-05-18 14:00] VITALS: BP 126/79; PULSE 109; RESP 13; TEMP 97.9
== END ==
LOC: PNWHC3 13:34
PROVIDERS: ATTEND Specialist
DX: M51.36 Other intervertebral disc degeneration, lumbar region (principal); M47.816 Spondylosis without myelopathy or radiculopathy, lumbar region; M48.061 Spinal stenosis, lumbar region without neurogenic claudication; F17.200 Nicotine dependence, unspecified, uncomplicated; Z88.8 Allergy status to other drugs, medicaments and biological substances; Z88.1 Allergy status to other antibiotic agents
CPT/HCPCS: 99211

== ENCOUNTER → 2023-08-21 | Outpatient (CLI) | payer MEDICARE ==
[2023-08-22 02:30] LABS: Blood Urea Nitrogen 18.2 mg/dL (9.0-27.0); Calcium 9.6 mg/dL (8.7-10.3); Carbon Dioxide 30.1 mmol/L (21.6-31.8); Chloride 104 mmol/L (96-109); Glucose 73 mg/dL (70-110); Potassium 4.5 mmol/L (3.5-5.5); Sodium 145 mmol/L (135-145)
[2023-08-22 02:38] LABS: Basophils # (A) 0.05 X 10*3/uL (0.00-0.10); Basophils % (A) 0.6 %; Eosinophils # (A) 0.13 X 10*3/uL (0.04-0.35); Eosinophils % (A) 1.5 %; HCT 41.9 % (37.2-46.3); HGB 12.4 g/dL (12.0-15.0); Lymphocytes # (A) 2.44 X 10*3/uL (0.90-5.00); Lymphocytes % (A) 27.5 %; MCH 26.3 pg (27.0-32.0); MCHC 29.6 g/dL (32.0-37.0); MCV 88.8 FL (80.0-97.0); Mean Platelet Volume 10.5 FL (9.5-12.2); Monocytes # (A) 0.49 X 10*3/uL (0.20-1.00); Monocytes % (A) 5.5 %; NRBC Per 100 WBC 0 X 10*3/uL (0.00-0.01); Neutrophils # (A) 5.73 X 10*3/uL (1.80-7.70); Neutrophils % (A) 64.6 %; Platelet Count 412 X 10*3/uL (140-440); RBC 4.72 X 10*6/uL (4.10-5.20); RDW 15.6 % (11.5-14.5); WBC 8.87 X 10*3/uL (4.50-10.00)
== END | disposition home or self-care (01) ==
LOC: LABPAT 15:51
PROVIDERS: ATTEND Orthopaedic Surgery Hand Surgery
DX: Z01.812 Encounter for preprocedural laboratory examination (principal); M65.4 Radial styloid tenosynovitis [de Quervain]
CPT/HCPCS: 36415; 80048; 85025

== ENCOUNTER 2023-09-13 08:29 | Day surgery (SDC) | payer MEDICARE, OTHER ==
--- NOTE | 2023-09-12 17:28 | P.HPOR ---
History of Present Illness H&P Date: 09/12/23 Subjective: This is a 62 year old female that presents today for follow up regarding her DeQuervains tenosynovitis. She has developed pain along the radial aspect of the wrist that is worse with lifting and twisting the wrist several months prior and underwent a first dorsal compartment steroid injection at her last visit in April and states the injection did not help. She is moving in the upcoming weeks and has had increased pain with lifting along the radial aspect of her wrist. She states her wrist arthritis pain is significanlty improved after 4 corner fusion. The pain is slightly relieved by a thumb spica brace. She denies any new injury. Physical Examination: RUE: AIN/PIN/Radial/Ulnar/Median motor intact. Radial/Ulnar/Median SILT. 2+/4 Radial/Ulnar pulses palpated. Dorsal and volar incisions well healed. Able to make full fist. Wrist extension 30, wrist flexion 60. Positive Finkelsteins. Negative CMC grind. Impression: 1.) Right DeQuervains tenosynovitis Plan: Diagnosis and treatment options were discussed with the patient. She has failed conservative treatment with bracing and a steroid injection for her DeQuervains tenosynovitis and would like to pursue a right first dorsal compartment release. Risks and benefits of surgery including bleeding, infection, damage to surrounding tissue, need for further surgery, residual numbness were discussed and the patient wished to go forward with surgery. The patient is agreeable with this plan. CC: Rama Puente MD -Jay Gould DO Orthopedic Hand/Upper Extremity Surgeon Past Medical History Past Medical History: Asthma, Cancer, GERD/Reflux, Hyperlipidemia, Musculoskeletal Disorder, Osteoarthritis (OA), Skin Disorder Additional Past Medical History / Comment(s): Bulging discs, Degenerative Disc Disease, osteoporosis, chronic back pain. Dysphagia w/meat & bread. Hx skin cancer MELANOMA ON BACK. Restless Leg Syndrome. Varicose veins left leg. Insomnia. CHILDHOOD ASTHMA. History of Any Multi-Drug Resistant Organisms: None Reported Past Surgical History: Cholecystectomy, Hysterectomy, Orthopedic Surgery Additional Past Surgical History / Comment(s): Pain clinic procedures. bilateral arms-tendon surgery, right arm ulnar nerve surgery. right endoscopic CTS, right scaphoid excision & fusion 12-07-22,rt wrist pins remove Past Anesthesia/Blood Transfusion Reactions: No Reported Reaction, Motion Sickness Additional Past Anesthesia/Blood Transfusion Reaction / Comment(s): no hx blood transfusion Past Psychological History: Depression Smoking Status: Former smoker Past Alcohol Use History: None Reported Additional Past Alcohol Use History / Comment(s): Quit smoking 2019, smoked for 40 yrs, 1ppd. Past Drug Use History: None Reported - Past Family History Mother History Unknown: Yes Family Medical History: No Reported History Father Family Medical History: Diabetes Mellitus, Hypertension, Myocardial Infarction (HI) Medications and Allergies Home Medications Medication Instructions Recorded Confirmed Type Cholecalciferol [Vitamin D3] 125 mcg PO QAM 10/16/14 09/11/23 History Multivitamins, Thera [Multivitamin 1 tab PO QAM 10/19/21 09/11/23 History (formulary)] Omeprazole 20 mg PO QAM 12/02/22 09/11/23 History hydroCHLOROthiazide 25 mg PO QAM 12/02/22 09/11/23 History [Hydrochlorothiazide] Ascorbic Acid [Vitamin C] 500 mg PO QAM 12/07/22 09/11/23 History Cyanocobalamin (Vitamin B-12) 1,000 mcg PO QAM 12/07/22 09/11/23 History [Vitamin B-12] FLUoxetine HCL [PROzac] 40 mg PO BID 12/07/22 09/11/23 History HYDROcodone/APAP 7.5-325MG [[place] 1 tab PO Q4-6H PRN 3 Days #18 tab 02/01/23 09/11/23 Rx 7.5-325] Cyclobenzaprine HCl 10 mg PO BID PRN 05/08/23 09/11/23 History Ezetimibe [Zetia] 10 mg PO QAM 05/08/23 09/11/23 History Magnesium 200 mg PO DAILY 05/08/23 09/11/23 History Tolterodine [Detrol] 2 mg PO BID 05/08/23 09/11/23 History rOPINIRole HCL [Requip] 2 mg PO BID 05/08/23 09/11/23 History Allergies Allergy/AdvReac Type Severity Reaction Status Date / Time pramipexole Allergy Hallucinati Verified 09/11/23 12:48 ons celecoxib [From Celebrex] AdvReac Nausea & Verified 09/11/23 12:48 Vomiting,poss rectal bleeding doxycycline AdvReac Nausea & Verified 09/11/23 12:48 Vomiting duloxetine HCl AdvReac Nausea & Verified 09/11/23 12:48 [From Cymbalta] Vomiting,poss rectal bleeding Physical Examination Osteopathic Statement: *. No significant issues noted on an osteopathic structural exam other than those noted in the History and Physical/Consult.
[~2023-09-13 08:29] MED LIST changes: +HYDROmorphone 0.5 MG/0.5 ML SYRINGE IVP PRN; -LACTATED RINGERS 1,000 ML IV SCH; +LIDOCAINE 1% (10MG/ML) FOR IV START INTRADERMA PRN; +MIDAZOLAM 2 MG/2 ML VIAL IV PRN; +Pre Op ABX Message 1 EACH MISC MISCELLANE ONE
[2023-09-13] MEDS: LACTATED RINGERS 1,000 ML IV SCH (09:02)
[2023-09-13] MEDS: ONDANSETRON 4 MG/2 ML VIAL IVP ONE (09:05)
[2023-09-13] MEDS: DEXAMETHASONE SOD PHOSPHATE 4 MG/ML 1 ML VIAL IV ONE (09:05)
[2023-09-13] MEDS ORDERED: PROPOFOL 10 MG/ML 20 ML VIAL IV ONE (09:24)
[2023-09-13] MEDS ORDERED: LIDOCAINE 1% INJ 10MG/ML (20 ML MDV) ONE (09:24)
[2023-09-13] MEDS ORDERED: PHENYLEPHRINE-0.9% NACL SYG 1,000 MCG/10 ML SYRINGE ONE (09:24)
[2023-09-13] MEDS ORDERED: MIDAZOLAM 2 MG/2 ML VIAL ONE (09:24)
[2023-09-13 09:30] VITALS: TEMP 98
[2023-09-13] MEDS: LIDOCAINE 1% INJ 10MG/ML (20 ML MDV) SQ ONE ×2 (09:30)
[2023-09-13] MEDS: BUPIVACAINE (PF) 0.5% 30 ML VIAL SQ ONE ×2 (09:30)
--- NOTE | 2023-09-13 09:45 | P.OP ---
Date of Procedure: 09/13/23 Preoperative Diagnosis: Right DeQuervains tenosynovitis Postoperative Diagnosis: Right DeQuervains tenosynovitis Procedure(s) Performed: Right first dorsal compartment release Anesthesia: MAC Surgeon: Jay Gould Research Neuropsychologist #1: Srini French Estimated Blood Loss (ml): 0 Pathology: none sent Disposition: PACU Description of Procedure: This is a 63 year old female who presents today for a right first dorsal compartment release after having failed conservative treatment. Risks and benefits of surgery were discussed with the patient including bleeding, damage to surrounding tissue, infection, need for further surgery as well as risks of anesthesia including pulmonary embolism and even and the patient wished to proceed with surgical intervention. The patients was seen in the pre-operative area by myself. Consent and H&P were completed and updated. The correct extremity was marked in the pre-operative area by myself and all other questions were answered. Operative Narrative: The patient was brought to the operating room by the department of anesthesia. They remained on the portable stretcher and a rolling hand table was brought to the side of the operative extremity. The patient was then drifted off to sleep by the department of anesthesia. A nonsterile tourniquet was then applied to the operative extremity and the right upper extremity was then prepped and draped in normal sterile fashion. Pre-operative time out was performed indicating the correct patient, procedure and laterality. All in the room agreed. MAC anesthesia was utilized and a 50:50 mixture of 1% Lidocaine and 0.5% bupivacaine was injected into the subcutaneous tissues of the radial wrist skin, 8ccs total. Pre-operative antibiotics were given prior to skin incision. The operative extremity was the exsanguinated with an esmarch bandage and the tourniquet was inflated to 250mmHg. 15 blade scalpel was used to make a horizontal skin incision centered over the first dorsal compartment of the right wrist. Blunt dissection was taken down to the proximal edge of the first dorsal compartment while taking care to identify and protect branches of the superficial radial sensory nerve. The first dorsal compartment was released in its entirety from proximal to distal. APL and EPB tendons were identified and were both located in the same compartment. Skin closure was performed with 4-0 Monocryl suture and steri strips. Sterile soft dressing was applied consisting of 4x4's cast padding and an minnie wrap. Srini MUKHERJEE was present for the case to assist in major portions of the procedure. The patient was then woken by the department of anesthesia and transferred to PACU in stable condition. Jay Gould D.O. Orthopedic Hand/Upper Extremity Surgeon
[2023-09-13 10:33] VITALS: BP 121/76; PULSE 70; RESP 20
== END 2023-09-13 10:32 | disposition home or self-care (01) ==
LOC: OR 08:29
PROVIDERS: ATTEND Orthopaedic Surgery Hand Surgery
DX: M65.4 Radial styloid tenosynovitis [de Quervain] (principal); J45.909 Unspecified asthma, uncomplicated; K21.9 Gastro-esophageal reflux disease without esophagitis; E78.5 Hyperlipidemia, unspecified; M81.0 Age-related osteoporosis without current pathological fracture; Z85.820 Personal history of malignant melanoma of skin; Z90.710 Acquired absence of both cervix and uterus; Z90.49 Acquired absence of other specified parts of digestive tract; F32.A Depression, unspecified; Z87.891 Personal history of nicotine dependence; Z82.49 Family history of ischemic heart disease and other diseases of the circulatory system; Z88.8 Allergy status to other drugs, medicaments and biological substances; Z88.6 Allergy status to analgesic agent; Z88.1 Allergy status to other antibiotic agents
CPT/HCPCS: 25000; J2250; J1100; J2405; J2001; J2704; J2371; J0665

== ENCOUNTER → 2023-09-14 | Outpatient (CLI) | payer MEDICARE, OTHER ==
[2023-09-14 09:00] VITALS: BP 147/72; PULSE 100; RESP 15; TEMP 97.6
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
== END ==
LOC: PNWHC3 07:52
PROVIDERS: ATTEND Specialist
DX: M51.37 Other intervertebral disc degeneration, lumbosacral region (principal); M47.817 Spondylosis without myelopathy or radiculopathy, lumbosacral region; M48.061 Spinal stenosis, lumbar region without neurogenic claudication; F17.200 Nicotine dependence, unspecified, uncomplicated; Z88.8 Allergy status to other drugs, medicaments and biological substances; Z88.1 Allergy status to other antibiotic agents
CPT/HCPCS: 99211

== ENCOUNTER → 2024-03-18 | Outpatient (CLI) | payer MEDICARE ==
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
[2024-03-18 15:22] VITALS: BP 119/80; PULSE 102; RESP 16; TEMP 96.9
== END ==
LOC: PNWHC3 09:40
PROVIDERS: ATTEND Specialist
DX: M54.16 Radiculopathy, lumbar region
CPT/HCPCS: 99211

== ENCOUNTER 2024-04-16 11:44 | Day surgery (SDC) | payer MEDICARE ==
[2024-04-03 13:33] VITALS: BMI 33.3
[~2024-04-16 11:44] MED LIST changes: -HYDROmorphone 0.5 MG/0.5 ML SYRINGE IVP PRN; +LACTATED RINGERS 1,000 ML IV SCH; -LIDOCAINE 1% (10MG/ML) FOR IV START INTRADERMA PRN; -MIDAZOLAM 2 MG/2 ML VIAL IV PRN; -Pre Op ABX Message 1 EACH MISC MISCELLANE ONE
[2024-04-16 12:47] VITALS: TEMP 97
[2024-04-16] MEDS ORDERED: methylPREDNISolone ACETATE 80 MG/ML 1 ML VIAL ONE (13:06)
[2024-04-16] MEDS ORDERED: IOPAMIDOL M200 10 ML VIAL ONE (13:06)
--- NOTE | 2024-04-16 13:20 | P.PCN ---
Date of Procedure: 04/16/24 Procedure(s) Performed: PREOPERATIVE DIAGNOSIS: 1- Lumbar Degenerative Disc Diseases 2-Lumbar spondylosis with Facet arthropathy without myelopathy. 3-lumbar spinal stenosis POSTOPERATIVE DIAGNOSIS: 1-lumbar degenerative disc disease. 2-lumbar spondylosis with facet arthropathy without myelopathy. 3-lumbar spinal stenosis. PROCEDURE 1. Lumbar epidural steroid injection under fluoroscopic guidance at the L5-S1 level. (Fluoroscopy imaging was available in radiology department) 2. Lumbar epidurogram. ANESTHESIA: Lidocaine 1% 3 and then only. EBL: Minimal PROCEDURE INDICATION: The patient with low back pain and radiculitis symptoms unresponsive to conservative treatment. Fluoroscopy was used to optimize visualization of the needle placement and to maximize safety. PROCEDURE DESCRIPTION / TECHNIQUE: The patient was seen and identified in the preoperative area. Risks, benefits, complications including but not limited to infections ,bleeding ,allergic reaction to the medications ,nerve damage and not complete pain releife , and alternatives were discussed with the patient. The patient agreed to proceed with the procedure and signed the consent, and vital signs were stable. Patient was taken to the OR and time out was completed. The patient was placed in the prone position on procedure table and a pillow was placed under the abdomen to reduce lumbar lordosis. The lumbosacral area was prepped and draped in the usual sterile fashion.ere closely monitored during the procedure. Vital signs was monitered during the entire procedure. Using anterior-posterior fluoroscopy, the L5-S1 interlaminar space was identified and the skin over this site was marked and then infiltrated with 1% lidocaine subcutaneously. Subsequently, a 18-gauge Tuohy epidural needle was inserted and advanced toward the epidural space using the ``Loss of resistance technique and guided by AP and lateral fluoroscopy. The correct needle position in the epidural space was verified with the injection of 2 mL of the water soluble contrast dye Isovue 200 contrast and observing an excellent epidurogram with the epidural spread of the dye, after negative aspiration for blood and CSF and in the absence of paresthesias. Again after negative aspiration, 5 ml mixture containing 60 mg of Depo-medrol ( Preservetive Free ), and 2 ml of preservative free Normal Saline, and 2 ml of preservative free lidocaine 1% solution was injected and a washout of epidurogram was seen. Needle was withdrawn intact, skin was cleansed, and bandages were applied. COMPLICATIONS: None DISPOSITION / PLANS: The patient was placed in a supine position and transferred to the recovery area in a stable condition for observation. There was no evidence of lower extremity motor or sensory deficit after the procedure. Patient was discharged from the recovery room after meeting discharge criteria. Home discharge instructions were given to the patient by the staff. The patient was reexamined prior to discharge. The patient will schedule a follow up in the clinic in 2-4 weeks.
[2024-04-16 13:41] VITALS: BP 103/50; PULSE 88; RESP 16
--- NOTE | 2024-04-23 18:22 | FL ---
EXAMINATION TYPE: FL guided pain mgmt statistic COMPARISON: Pre Operative Images if available both CT/MRI or plain film CLINICAL INDICATION: Female, 64 years old with history of PAIN; TECHNIQUE: FL guided pain mgmt statistic, multiple fluoroscopic images provided for procedure. Total fluoroscopy time: 15.5 seconds Total submitted images to PACS: 1 DAP: [id number] mGym2 Gycm2 uGym2 cGycm2 FINDINGS: Fluoroscopic images during injection for pain management demonstrate multilevel degeneration changes throughout the spine. No evidence for fracture. No acute process identified. IMPRESSION: 1. No evidence for intraoperative complication. 2. Please see the operative/procedural note for further details. [facility], , 04/23/2024 6:19 PM
== END 2024-04-16 13:46 | disposition home or self-care (01) ==
LOC: ORPAIN 11:44
PROVIDERS: ATTEND Specialist
DX: M54.16 Radiculopathy, lumbar region
CPT/HCPCS: 62323

== ENCOUNTER → 2024-05-09 | Outpatient (CLI) | payer MEDICARE ==
[2024-05-09 11:24] VITALS: BP 141/70; PULSE 91; RESP 16; TEMP 96.8
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
== END ==
LOC: PNWHC3 11:04
PROVIDERS: ATTEND Specialist
DX: M54.16 Radiculopathy, lumbar region
CPT/HCPCS: 99211

== ENCOUNTER 2024-10-10 09:21 | Day surgery (SDC) | payer MEDICARE ==
[2024-09-24 12:24] VITALS: BMI 33.1
[2024-10-10 10:58] VITALS: RESP 16; TEMP 97.6
[2024-10-10] MEDS: LACTATED RINGERS 1,000 ML IV SCH (11:03)
[2024-10-10] MEDS ORDERED: IOPAMIDOL M300 15ML VIAL ONE (12:04)
[2024-10-10] MEDS ORDERED: DEXAMETHASONE SOD PHOSPHATE 10 MG/ML 1 ML VIAL ONE (12:04)
--- NOTE | 2024-10-10 12:33 | P.PCN ---
Description of Procedure: PREOPERATIVE DIAGNOSIS: 1-Lumbar radiculopathy . 2-lumbar degenerative disc disease. 3-lumbar spondylosis with lumbar facet arthropathy without myelopathy POSTOPERATIVE DIAGNOSIS: 1-lumbar radiculopathy. 2-lumbar degenerative disc disease. 3-lumbar spondylosis with facet arthropathy without myelopathy PROCEDURE 1. Transforaminal epidural steroid injection under fluoroscopic guidance at LEFT L4-5, L5-S1 level. (Fluoroscopy images stored on file in the radiology Department ) 2. Lumbar epidurogram . ANESTHESIA: Local with 1% lidocaine 5 ml. subcutaneously. Continuous pulse ox, EKG, blood pressure and verbal communication was maintained with the patient. EBL: Minimal PROCEDURE INDICATION: The patient with low back pain and radiculopathy symptoms unresponsive to conservative treatment. The patient was seen and identified in the preoperative area. Risks, benefits, complications, and alternatives were discussed with the patient. The patient agreed to proceed with the procedure and signed the consent. IV was started, and vital signs were stable. PROCEDURE DESCRIPTION / TECHNIQUE: After getting consent, patient was taken to the OR and time out was completed. The patient was placed in the prone position on procedure table and a pillow was placed under the abdomen to reduce lumbar lordosis. The lumbosacral area was prepped and draped in the usual sterile fashion. Critical pause was taken. After injecting 5 mL of plain 1% lidocaine subcutaneously, under oblique view of the fluoroscope, a 22-gauge spinal needle was introduced under the tunnel view of the fluoroscope on the LEFT side and the needle was advanced so that the tip of the needle was at the posterior inferior quadrant of the intervertebral for amen at the lateral view of the fluoroscope and in the lateral third of the facet column in the AP view of the fluoroscope. Negative CSF, negative blood, negative paresthesia. After needle position confirmation by AP and cross table lateral view, 3 mL of Isovue-M 200 contrast was injected under continuous fluoroscope. No contrast was noted in the intrathecal or intravascular space. The epidurogram was noted. Again after repeated negative aspiration 2.5 mL solution was injected which consists 1 mL of normal saline mixed with 1.5 mL of 15 mg dexamethasone. Needle was removed . Same procedure was repeated at the LEFT side at L5-S1 level , using contrast under continuous fluoroscopy and using same amount of dexamethasone. At the end of the procedure, skin was cleansed, and bandages were applied. DISPOSITION / PLANS: No complication. The patient tolerated the procedure well. The patient was placed in a supine position and transferred to the recovery area in a stable condition for observation. There was no evidence of lower extremity motor or sensory deficit after the procedure. Patient was discharged from the recovery room after meeting discharge criteria. Home discharge instr uctions were given to the patient by the staff. The patient was reexamined prior to discharge.
[2024-10-10 12:49] VITALS: BP 104/66; PULSE 82
--- NOTE | 2024-10-10 12:56 | FL ---
EXAMINATION TYPE: FL guided pain mgmt statistic DATE OF EXAM: 10/10/2024 CLINICAL HISTORY: Low back pain. TECHNIQUE: Fluoroscopy. COMPARISON: None. FINDINGS: Fluoroscopic guidance was provided during pain relief procedure performed by Dr. Hanson . A total of 140 seconds of fluoroscopic time was utilized during the procedure and two spot images are acquired. Images acquired shows needle localization . IMPRESSION: As Above. [facility], , 10/10/2024 12:54 PM
== END 2024-10-10 13:02 | disposition home or self-care (01) ==
LOC: ORPAIN 09:21
PROVIDERS: ATTEND Pain Medicine Interventional Pain Medicine
DX: M47.26 Other spondylosis with radiculopathy, lumbar region (principal); M51.16 Intervertebral disc disorders with radiculopathy, lumbar region; Z88.0 Allergy status to penicillin; Z88.1 Allergy status to other antibiotic agents; Z88.8 Allergy status to other drugs, medicaments and biological substances; Z88.6 Allergy status to analgesic agent
CPT/HCPCS: 64483; 64484; J1100; Q9967

== ENCOUNTER → 2024-11-07 | Outpatient (CLI) | payer MEDICARE ==
[2024-11-07 12:51] VITALS: BP 107/72; PULSE 67; RESP 19; TEMP 95.8
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
== END ==
LOC: PNWHC3 12:28
PROVIDERS: ATTEND Anesthesiology
DX: M47.26 Other spondylosis with radiculopathy, lumbar region (principal); M48.061 Spinal stenosis, lumbar region without neurogenic claudication; F17.200 Nicotine dependence, unspecified, uncomplicated; Z88.0 Allergy status to penicillin; Z88.1 Allergy status to other antibiotic agents; Z88.6 Allergy status to analgesic agent; Z88.8 Allergy status to other drugs, medicaments and biological substances
CPT/HCPCS: 99211

== ENCOUNTER → 2024-11-13 | Outpatient (CLI) | payer MEDICARE ==
--- NOTE | 2024-11-13 11:08 | MM ---
Reason for Exam: Screening (asymptomatic). Last mammogram was performed 5 year(s) and 3 month(s) ago. Patient History: Menarche at age 12. First Full-Term at age 21. Hysterectomy at age 28. Postmenopausal. Maternal aunt had breast cancer. Risk Values: Karely 5 year model risk: 1.4%. NCI Lifetime model risk: 4.9%. Prior Study Comparison: 05/02/2008 Bilateral Screening Mammogram, [facility]. 05/28/2014 Bilateral Screening Mammogram, [facility]. 08/15/2019 Bilateral Screening Mammogram, [facility]. Tissue Density: The breasts are heterogeneously dense, which may obscure small masses. Findings: Analyzed By CAD. There is no suspicious group of microcalcifications or new suspicious mass in either breast. Overall Assessment: Negative, BI-RAD 1 Management: Screening Mammogram of both breasts in 1 year. . Patient should continue monthly self-breast exams. A clinical breast exam by your physician is recommended on an annual basis. This exam should not preclude additional follow-up of suspicious palpable abnormalities. Note on Karely scores and lifetime risk: 1. A Karely score greater than 3% is considered moderate risk. If this is the case, consider specialist referral to assess eligibility for a risk reducing agent. 2. If overall lifetime risk for the development of breast cancer is 20% or higher, the patient may qualify for future screening with alternating mammogram and breast MRI. [facility], , 11/13/2024 11:06 AM. Electronically signed and approved by: Yoav Salas M.D. Radiologis
== END | disposition home or self-care (01) ==
LOC: RADMAMWWP 10:41
PROVIDERS: ATTEND Family Medicine
DX: Z12.31 Encounter for screening mammogram for malignant neoplasm of breast (principal); R92.333 Mammographic heterogeneous density, bilateral breasts; Z78.0 Asymptomatic menopausal state; Z80.3 Family history of malignant neoplasm of breast
CPT/HCPCS: 77063; 77067